=== PATIENT | female | born 1965 | race Caucasian/White ===

== ENCOUNTER 2017-01-05 00:15 | Emergency (ER) | payer OTHER ==
[~2017-01-05] VITALS: Ht 167.6 cm; Wt 101.2 kg
[2017-01-05 02:26] VITALS: BP 138/82
== END 2017-01-05 02:26 | disposition home or self-care (01) ==
LOC: ED 00:15
DX: M54.5 Low back pain (principal); E78.00 Pure hypercholesterolemia, unspecified; Z79.899 Other long term (current) drug therapy